=== PATIENT | female | born 1965 | race Caucasian/White ===

== ENCOUNTER 2016-08-05 09:00 | Outpatient (RCR) | payer BC, OTHER | END 2016-09-01 | disposition home or self-care (01) | LOC: DT 09:00 | PROVIDERS: ATTEND Family Medicine | DX: E66.8 Other obesity (principal); Z68.43 Body mass index [BMI] 50.0-59.9, adult; Z71.3 Dietary counseling and surveillance | CPT/HCPCS: 97803 ==

== ENCOUNTER 2016-11-04 09:00 | Outpatient (RCR) | payer OTHER, BC ==
[~2016-11-04 09:00] MED LIST: GBPN600T PO; LEVO88TA2 PO; LSRT50T PO; MELATONIN; Metformin PO; SPIROLACTONE PO; TRAZADONE PO
== END 2016-11-29 17:10 | disposition home or self-care (01) ==
LOC: DT 09:00
PROVIDERS: ATTEND Family Medicine
DX: E66.8 Other obesity (principal); Z71.3 Dietary counseling and surveillance; Z68.43 Body mass index [BMI] 50.0-59.9, adult
CPT/HCPCS: 97803